=== PATIENT | male | born 1965 | race Caucasian/White ===

== ENCOUNTER 2016-09-18 06:54 | Day surgery (SDC) | payer BC ==
[2016-08-28 08:20] VITALS: BMI 32.0
--- NOTE | 2016-08-28 08:48 | PAT Medication Instructions ---
Service Date Aug 28, 2016. Current Home Medication List Aspirin (Aspirin Ec), 81 MG PO QAM Cholecalciferol (Vitamin D3), 1 TAB PO QAM Esomeprazole Magnesium (Nexium), 40 MG PO QAM Fish Oil (Low Moor-3), 1 CAP PO QAM Loratadine (Claritin), 10 MG PO DAILY PRN for PRN Medication Instructions For Your Scheduled Surgery - Hold the following medications 2 weeks prior to surgery: Fish Oil (Low Moor-3), 1 CAP PO QAM - Hold the following medications the morning of surgery: Loratadine (Claritin), 10 MG PO DAILY PRN for PRN Cholecalciferol (Vitamin D3), 1 TAB PO QAM - Take the following medications the morning of surgery with a sip of water: Aspirin (Aspirin Ec), 81 MG PO QAM Esomeprazole Magnesium (Nexium), 40 MG PO QAM If you have any questions please call us at [phone] or [phone] ( [place]) or [phone]
--- NOTE | 2016-08-28 09:31 | DIAGNOSTIC IMAGING REPORT ---
CHEST PREADMISSION(PA/LAT) HISTORY: Preop. COMPARISON: None. FINDINGS: The lungs are clear. Cardiac silhouette is normal in size. No pleural effusions. No pneumothorax. IMPRESSION: No acute process. Electronically signed by: Tanner Grant M.D. 08/28/2016 9:29 AM Dictated Date/Time: 08/28/2016 9:18 AM
[2016-08-28 09:47] LABS: BASO % 0.4 %; BASO ABS # 0.02 K/uL (0-0.2); COMPLETE YES; EOS % 4.6 %; HEMATOCRIT 46.3 % (42-52); IG% 0.2 %; LYMPH % 32.8 %; LYMPH ABS # 1.79 K/uL (1.2-3.4); MEAN CELL VOLUME 94.1 fL (80-100); MEAN CORPUSCULAR HEMOGLOBIN 32.9 pg (25-34); MEAN PLATELET VOLUME 9.6 fL (7.4-10.4); MONO % 8.6 %; NEUT % 53.4 %; PLATELET COUNT 189 K/uL (130-400); RED BLOOD COUNT 4.92 M/uL (4.7-6.1); WHITE BLOOD COUNT 5.45 K/uL (4.8-10.8)
[2016-08-28 10:14] LABS: BUN/CREATININE RATIO 13.2 (10-20); CALCIUM 8.5 mg/dl (8.5-10.1); CREATININE 0.95 mg/dl (0.60-1.40)
[~2016-09-18] VITALS: Ht 180.3 cm; Wt 105.1 kg
[~2016-09-18 06:54] MED LIST: ASPI81TA28 PO; CHOL20007 PO; CLR10 PO; LACTATED RINGER'S 1000ML 1,000 ML IV SCH; NXM/40 PO; OMEG10007 PO
[2016-09-18 07:12] VITALS: Ht 180.3 cm; Wt 105.1 kg
[2016-09-18] MEDS ORDERED: MIDAZOLAM HCL 1 MG/ML 2ML VIAL ONE (07:32)
[2016-09-18] MEDS ORDERED: PROPOFOL IV EMULSION 10 MG/ML 20 ML VIAL IV ONE (07:33)
[2016-09-18] MEDS ORDERED: LIDOCAINE HCL 2% 2 ML VIAL (20MG/ML) ONE (07:33)
[2016-09-18] MEDS ORDERED: FENTANYL CITRATE INJ 50 MCG/1 ML 2 ML VIAL ONE (07:33)
[2016-09-18] MEDS ORDERED: EpHEDrine SULFATE INJ 50 MG/ML AMP IV PRN (07:45)
[2016-09-18] MEDS ORDERED: HYDROmorphone INJ 0.5 MG/0.5 ML SYR IV PRN (07:45)
[2016-09-18] MEDS ORDERED: ATROPINE SULFATE 0.1 MG/ML 5ML SYR IV PRN (07:45)
[2016-09-18] MEDS ORDERED: ONDANSETRON INJ 2 MG/ML 2 ML VIAL IV PRN ×2 (07:45→09:15)
--- NOTE | 2016-09-18 07:56 | History & Physical Bridge Note ---
H&P Re-Evaluation Bridge Note: I have examined the patient, reviewed the History & Physical and in the interval since the performance of the History & Physical I have noted the following changes of clinical significance: No changes noted pt marked at bedside
[2016-09-18] MEDS ORDERED: BACITRACIN 50000 UNIT VIAL ONE (08:10)
[2016-09-18] MEDS ORDERED: CEFAZOLIN SOD 1 GM VIAL ONE (08:10)
[2016-09-18] MEDS ORDERED: BUPIVACAINE 0.5 % 5 MG/1 ML MPF 30ML VIAL ONE (08:10)
[2016-09-18] MEDS ORDERED: OXYC-57 PO (08:13)
--- NOTE | 2016-09-18 08:15 | Discharge Instructions ---
Discharge Instructions Date of Service Sep 18, 2016. Visit Reason for Visit: Umblicial Hernia Discharge Discharge Diagnosis / Problem: Umbilical hernia repair Discharge Goals Goal(s): Decrease discomfort Activity Recommendations Activity Limitations: as noted below Lifting Limitations: no more than 10 pounds Shower/Bathe: tomorrow (shower over dressing, it is waterproof, remove dressing in 2-3 days) Anesthesia . Post Anesthesia Instructions: If you have had General Anesthesia or IV Sedation: * Do not drive today. * Resume driving when surgeon permits. * Do not make important decisions or sign legal documents today. * Call surgeon for: 1. Temperature elevations greater than 101 degrees F. 2. Uncontrollable pain. 3. Excessive bleeding. 4. Persistent nausea and vomiting. 5. Medication intolerance (nausea, vomiting or rash). * For nausea and vomiting use only clear liquids such as: tea, soda, bouillon until nausea subsides, then gradually increase diet as tolerated. * If you have any concerns or questions, call your surgeon's office. If physician is unavailable and it is an emergency, call 911 or go to the nearest emergency room. . Instructions / Follow-Up Instructions / Follow-Up Dr. Sommers in 1 week, call [phone] if you do not already have an appt or for any questions Diet Recommendations Recommended Home Diet: no limitations Pending Studies Studies pending at discharge: no Medical Emergencies . Who to Call and When: Medical Emergencies: If at any time you feel your situation is an emergency, please call 911 immediately. . Non-Emergent Contact Non-Emergency issues call your: Surgeon Call Non-Emergent contact if: you have a fever, temperature is above 101.5, your pain is not controlled, wound has increased redness, wound has increased pain . . "Provider Documentation" section prepared by Vitor Dozier.
[2016-09-18] MEDS ORDERED: DEXAMETHASONE SOD INJ 4 MG/ML VIAL ONE (08:37)
[2016-09-18] MEDS ORDERED: ONDANSETRON INJ 2 MG/ML 2 ML VIAL ONE (08:37)
[2016-09-18] MEDS ORDERED: LACTATED RINGER'S 1000ML 1,000 ML IV SCH (09:06)
--- NOTE | 2016-09-18 09:09 | Medical Student: [facility] ---
Immediate Operative Summary Operative Date Sep 18, 2016. Pre-Operative Diagnosis Umbilical Hernia Post-Operative Diagnosis Same as above Procedure(s) Performed Open umbilical hernia repair with mesh Surgeon Dr. Sommers [employer] Architect Surgeon(s) Vitor Pozo PA-C Estimated Blood Loss 3 mL Findings Umbilical hernia protruding from abdominal wall Fluids (cc crystalloids) 800 cc Specimens None Drains None Anesthesia Block Complication(s) None Disposition Recovery Room / PACU
--- NOTE | 2016-09-18 09:11 | [facility] Post Operative Brief Note ---
Immediate Operative Summary Operative Date Sep 18, 2016. Pre-Operative Diagnosis Incarcerated Umbilical Hernia Post-Operative Diagnosis Same as preoperative Procedure(s) Performed Open Umbilical Hernia Repair with Mesh Patch and Plug Surgeon Dr. Jimmie Sommers Survey Statistician Surgeon(s) Vitor Dozier PA-C Estimated Blood Loss 3ml Findings joel 2 cm defect with incarcerated preperitoneal tissue Specimens None per surgeon
[2016-09-18] MEDS ORDERED: KETOROLAC TROMETHAMINE 30 MG/ML VIAL IV. PRN (09:15)
[2016-09-18] MEDS ORDERED: MoRPHine SULFATE 2 MG/ML CARP IV PRN (09:15)
[2016-09-18] MEDS ORDERED: OXYCODONE/ACETAMINOPHEN 5-325 TAB PO PRN (09:15)
[2016-09-18] MEDS: FENTANYL CITRATE INJ 50 MCG/1 ML 2 ML VIAL IV PRN ×2 (09:25→09:30)
--- NOTE | 2016-09-18 09:44 | Anesthesiology Progress Note ---
Anesthesia Post Op Note Date & Time Sep 18, 2016 at 09:44 Vital Signs Pain Intensity: 5 Vital Signs Past 12 Hours Date Time Temp Pulse Resp B/P Pulse Ox O2 Delivery O2 Flow Rate FiO2 09/18/16 09:42 37.0 09/18/16 09:32 64 16 09/18/16 09:32 64 16 93 09/18/16 09:30 116/80 09/18/16 09:27 68 16 92 09/18/16 09:27 69 16 09/18/16 09:25 117/79 09/18/16 09:22 66 13 09/18/16 09:22 65 13 95 09/18/16 09:20 119/70 09/18/16 09:17 67 13 95 09/18/16 09:17 67 13 09/18/16 09:15 126/81 09/18/16 09:12 66 13 96 09/18/16 09:12 65 13 09/18/16 09:10 121/77 09/18/16 09:07 36.6 64 11 129/82 96 Mask 10 09/18/16 09:07 67 11 129/82 96 09/18/16 09:07 67 11 Notes Mental Status: alert / awake / arousable, participated in evaluation Pt Amnestic to Procedure: Yes Nausea / Vomiting: adequately controlled Pain: adequately controlled Airway Patency, RR, SpO2: stable & adequate BP & HR: stable & adequate Hydration State: stable & adequate Anesthetic Complications: no major complications apparent
--- NOTE | 2016-09-18 09:49 | OPERATIVE REPORT ---
DATE OF OPERATION: 09/18/2016 PREOPERATIVE DIAGNOSIS: Symptomatic incarcerated umbilical hernia. POSTOPERATIVE DIAGNOSIS: Same. PROCEDURE: Repair symptomatic incarcerated umbilical hernia. SURGEON: Dr. Sommers. RUBBER MOLDER: Mychal Dozier PA-C. OPERATION AND FINDINGS: SUMMARY: The patient's abdomen was prepped with Betadine scrubbing solution and properly draped. Systemic antibiotics was given. The patient on exam appeared to have 2 separate lobulated areas coming around the umbilical, 1 in the inferior aspect of the umbilical tissue and 1 superiorly. Therefore, I elected to make a midline incision to the left, deepened through subcutaneous tissue. Once we entered the subQ we went through the abdominal wall and then freed up the incarcerated hernia from the umbilical tissue using the knife to free it up. There is very little space between the incarcerated tissue in the umbilical area, but using the IV appeared to keep the viability of the umbilical tissue. Once we freed this up circumferentially, we were able then to reduce that. These were actually the same hernia defect which was about 2 cm and it just happened to be multilobular. We returned it to the preperitoneal area without entering the peritoneal cavity. At this point, I elected just to use the Marlex mesh and plug. We took a 2 x 4 inch piece of Marlex, made in 2 circular rings, 1 smaller than the other, attached it centrally, the smaller one underneath and placed that preperitoneal into the abdomen. We used nylon suture to anchor that and laid it on 4 points. Then the other ring on top, the patch itself we placed it and taking bites onto the edge of the defect with nylon sutures. Then, the excess which was about a centimeter more, we tacked to the anterior abdominal wall with similar nylon 2-0 suture. The repair appeared to be solid, tension free. We then used some local anesthetic circumferentially around the operative field, closed the wound in multiple layer of 3-0 and 2-0 Dexon, a piece of 4 x 4 was placed in the umbilical tissue. A dressing was applied. The procedure was tolerated well by the patient and was taken to recovery room in good condition. I attest to the content of the Intraoperative Record and any orders documented therein. Any exceptions are noted below. YVETTE
[2016-09-18 09:55] VITALS: BP 118/72; PULSE 58; TEMP 36.8; O2SAT 95
[2016-09-18] MEDS ORDERED: OXYCODONE/ACETAMINOPHEN 5-325 TAB ONE (10:18)
[2016-09-18] MEDS ORDERED: KETOROLAC TROMETHAMINE 30 MG/ML VIAL ONE (10:18)
[2016-09-18 10:25] VITALS: BP 120/80; PULSE 62; O2SAT 94
[2016-09-18 10:55] VITALS: BP 115/74; PULSE 56; TEMP 36.5; O2SAT 95
== END 2016-09-18 11:30 | disposition home or self-care (01) ==
LOC: C.ACU 06:54
PROVIDERS: ATTEND Surgery
DX: K42.0 Umbilical hernia with obstruction, without gangrene (principal); Z82.49 Family history of ischemic heart disease and other diseases of the circulatory system; Z83.3 Family history of diabetes mellitus; Z80.0 Family history of malignant neoplasm of digestive organs; Z87.891 Personal history of nicotine dependence; Z79.82 Long term (current) use of aspirin

== ENCOUNTER → 2017-02-04 | Outpatient (CLI) | payer BC ==
[~2017-02-04] MED LIST changes: -LACTATED RINGER'S 1000ML 1,000 ML IV SCH; +OPTIRAY 320 IV PRN; +OXYC-57 PO
--- NOTE | 2017-02-04 16:32 | DIAGNOSTIC IMAGING REPORT ---
CT ANGIOGRAM OF THE CHEST CLINICAL HISTORY: Atypical chest pain. Positive d-dimer. COMPARISON STUDY: Chest x-ray dated 02/04/2017 TECHNIQUE: Following the IV administration of 96 mL of Optiray-320, CT angiogram of the thorax was performed from the thoracic inlet to the lung bases utilizing the pulmonary embolus protocol. Images are reviewed in the axial, sagittal, and coronal planes. IV contrast was administered without complication. MIP imaging was performed. A dose lowering technique was utilized adhering to the principles of ALARA. CT DOSE: 617.58 mGy.cm FINDINGS: No pathologically enlarged axillary mediastinal or hilar lymph nodes were visualized. There was no evidence of thoracic aortic dilatation. There were no pulmonary artery filling defects to indicate acute pulmonary embolism. No pleural effusions are visualized. There are dependent atelectatic changes. There is no focal pulmonary consolidation. There is a partially visualized 2 cm upper pole right renal cyst. IMPRESSION: 1. No evidence of acute pulmonary embolism 2. No evidence of pathologic adenopathy 3. No evidence of focal pulmonary consolidation Electronically signed by: Rico Chapa M.D. 02/04/2017 4:31 PM Dictated Date/Time: 02/04/2017 4:27 PM
== END | disposition home or self-care (01) ==
LOC: C.CTS 16:04
PROVIDERS: ATTEND Family Medicine
DX: R07.9 Chest pain, unspecified (principal)

== ENCOUNTER → 2017-02-04 | Outpatient (CLI) | payer BC ==
[~2017-02-04] MED LIST changes: -OPTIRAY 320 IV PRN
--- NOTE | 2017-02-04 13:06 | DIAGNOSTIC IMAGING REPORT ---
CHEST 2 VIEWS ROUTINE HISTORY: Atypical CHEST PAIN-LABS FIRST COMPARISON: Chest 08/28/2016. FINDINGS: The lungs are clear. Cardiac silhouette is normal in size. No pleural effusions. No pneumothorax. IMPRESSION: No acute process. Electronically signed by: Tanner Grant M.D. 02/04/2017 1:05 PM Dictated Date/Time: 02/04/2017 1:04 PM
[2017-02-04 13:29] LABS: BASO % 0.4 %; BASO ABS # 0.02 K/uL (0-0.2); EOS % 4.6 %; HEMATOCRIT 46.7 % (42-52); IG% 0.2 %; LYMPH % 32.6 %; LYMPH ABS # 1.71 K/uL (1.2-3.4); MEAN CELL VOLUME 93.8 fL (80-100); MEAN CORPUSCULAR HEMOGLOBIN 32.5 pg (25-34); MEAN PLATELET VOLUME 9.8 fL (7.4-10.4); MONO % 13.2 %; PLATELET COUNT 196 K/uL (130-400); RED BLOOD COUNT 4.98 M/uL (4.7-6.1); WHITE BLOOD COUNT 5.24 K/uL (4.8-10.8)
[2017-02-04 13:30] LABS: COMPLETE YES; MEAN CORPUSCULAR HGB CONC 34.7 g/dl (32-36)
[2017-02-04 13:52] LABS: ALT/SGPT 61 U/L (12-78); BLOOD UREA NITROGEN 9 mg/dl (7-18); BUN/CREATININE RATIO 10.6 (10-20); CARBON DIOXIDE 28 mmol/L (21-32); CHLORIDE 109 mmol/L (98-107); CREATININE 0.89 mg/dl (0.60-1.40); GLUCOSE 83 mg/dl (70-99); POTASSIUM 4.2 mmol/L (3.5-5.1); SODIUM 142 mmol/L (136-145)
[2017-02-04 13:57] LABS: ALB/GLOB RATIO 0.9 (0.9-2); ALKALINE PHOSPHATASE 85 U/L (45-117); AST/SGOT 33 U/L (15-37)
== END | disposition home or self-care (01) ==
LOC: C.RAD 12:12
PROVIDERS: ATTEND Family Medicine
DX: R07.9 Chest pain, unspecified (principal)